=== PATIENT | female | born 2005 | race Caucasian/White ===

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

== ENCOUNTER 2023-05-03 15:12 | Outpatient (REF) | payer OTHER, SELFPAY | END 2023-05-03 15:13 | disposition home or self-care (01) | LOC: HO.SH 15:12 | PROVIDERS: Visit Provider Pediatrics | DX: Z01.118 Encounter for examination of ears and hearing with other abnormal findings (principal); H90.41 Sensorineural hearing loss, unilateral, right ear, with unrestricted hearing on the contralateral side | CPT/HCPCS: 92557; 92567 ==

== ENCOUNTER 2023-08-26 12:24 | Emergency (ER) | payer OTHER, SELFPAY ==
--- NOTE | ~2023-08-26 | CT_ITS ---
EXAMINATION: CT ABDOMEN AND PELVIS WITHOUT CONTRAST CLINICAL INFORMATION: Right flank pain. COMPARISON: CT of the abdomen and pelvis done on 09/16/2022. TECHNIQUE: Multidetector volumetric imaging was performed from the superior aspect of the liver through the pubic symphysis. Sagittal and coronal reformatted images were obtained on the technologist's workstation. This CT examination was performed using dose optimization techniques as appropriate, variously including the following: *Automated exposure control *Adjustment of mA and/or kV according to patient size (this includes techniques or standardized protocols for targeted exams where dose is matched to indication/reason for exam; i.e. extremities or head) *Use of iterative reconstruction technique DLP: 579 mGy-cm FINDINGS: LUNG BASES: The visualized lung bases are unremarkable. LIVER, GALLBLADDER, AND BILIARY TREE: The liver is normal in size, shape, and attenuation. No focal hepatic lesion or biliary ductal dilatation is present. The gallbladder is unremarkable with no evidence of radiopaque gallstones, gallbladder wall thickening, or obvious pericholecystic inflammatory changes. PANCREAS: Unremarkable. SPLEEN: Unremarkable. ADRENAL GLANDS: Unremarkable. KIDNEYS AND URETERS: The left kidney is normal in size, shape, and attenuation. No hydronephrosis, hydroureter, or calculi seen. No perinephric stranding. The right kidney shows moderate hydroureteronephrosis secondary to a 0.4 cm obstructing calculus seen at the right ureterovesicular junction with mean Hounsfield value of 211 (601: 3). There are 2 additional punctate millimeter size nonobstructing right renal calculi seen within the inferior anterior and inferior posterior calyces (269 and 273:3). The right kidney is also asymmetrically enlarged and shows mild perinephric stranding. BLADDER: Unremarkable. GASTROINTESTINAL TRACT: The small and large bowel are unremarkable. The appendix is unremarkable. ABDOMINAL WALL: No significant hernia is appreciated. LYMPH NODES: Normal. VASCULAR: Unremarkable. PELVIC VISCERA: Bilateral adnexal hypodensities are consistent with enlarged follicle-containing otherwise normal-appearing ovaries. The uterus is unremarkable. No evidence of any free fluid and/or free air. OSSEOUS STRUCTURES: Unremarkable. CT/CT abdomen pelvis wo IV con IMPRESSION: 1. Moderate right-sided hydroureteronephrosis is seen secondary to an obstructing 0.4 cm radiopaque calculus at the right ureterovesicular junction. There are 2 additional punctate millimeter size nonobstructing right renal calculi identified as well. No definite left renal or urinary bladder calculi. 2. Otherwise unremarkable study. Fleischner guidelines were followed.
--- NOTE | ~2023-08-26 | US_ITS ---
EXAMINATION: US RETROPERITONEAL LIMITED (RENAL ONLY) CLINICAL INFORMATION: Right costovertebral angle tenderness and right lower quadrant pain.. COMPARISON: CT of the abdomen and pelvis done on 09/16/2022. TECHNIQUE: Real-time imaging of the kidneys. FINDINGS: RIGHT KIDNEY: 10.3 x 5.1 x 5.6 cm (SAG x AP x TRV). The kidney is normal in size, contour, and echogenicity. Renal cortical thickness is normal. No focal parenchymal lesions or hydronephrosis. There are multiple echogenic foci seen within superior middle and inferior calyces measuring in size between 0.5-0.6 cm, consistent with multiple nonobstructing calculi. The proximal to mid part of the right ureter is also dilated suspicious for distal ureteric obstruction. LEFT KIDNEY: 10.2 x 4.0 x 4.8 cm (SAG x AP x TRV). The kidney is normal in size, contour, and echogenicity. Renal cortical thickness is normal. No calculi or focal parenchymal lesions. No hydronephrosis. THE URINARY BLADDER: Empty. US/US renal BI IMPRESSION: 1. Morphologically unremarkable left kidney and decompressed urinary bladder. 2. Multiple subcentimeter right renal calculi varying in size between 0.5 to 0.6 cm and dilated proximal to mid part of the visualized right ureter, suspicious for distal ureteric obstruction.
[2023-08-26 13:30] VITALS: BP 123/88; PULSE 97; RESP 16; TEMP 36.3; O2SAT 100; BMI 29.9
--- NOTE | 2023-08-26 13:30 | ED_ITS ---
HPI - Abdominal Pain General Chief Complaint: Abdominal Pain Stated Complaint: Kidney stones (?) Time Seen by Provider: 08/26/23 15:06 Source: patient, family and old records reviewed Mode of arrival: ambulatory Limitations: no limitations History of Present Illness HPI narrative: 18 yo female with PMH of resolved renal colic in the past. Presents with R sided pain since Sunday here with worsening R sided flank pain now with n/v inability to eat or drink that has worsened since last night. Did not take any medications at home prior to arrival. No prior surgeries. She is on her menses right now. MD elicited complaint: flank pain Pertinent past history: kidney stones Onset (ago): day(s) (4) Pain Consistency: constant Location: R flank Severity: moderate Quality: stabbing and aching Radiation: RLQ Migration to: RLQ Exacerbating factors: nothing Relieving factors: nothing Associated symptoms: nausea and vomiting Related Data Previous Rx's Medication Instructions Recorded naproxen 500 mg tablet (Naprosyn) 500 mg PO BID #20 tabs 09/16/22 ondansetron 4 mg disintegrating 4 mg PO Q8H 4 days #12 tabs 09/16/22 tablet tamsulosin 0.4 mg capsule (Flomax) 0.4 mg PO BEDTIME #20 caps 09/16/22 oxycodone-acetaminophen 5 mg-325 1 tab PO Q6H PRN pain #20 tabs 08/26/23 mg tablet (Percocet) tamsulosin 0.4 mg capsule (Flomax) 0.4 mg PO BEDTIME #10 caps 08/26/23 Allergies Allergy/AdvReac Type Severity Reaction Status Date / Time No Known Allergies Allergy Verified 08/26/23 13:34 Review of Systems Review of Systems Constitutional : No Fever, No Chills ENT/Mouth : No sore throat Eyes: No Eye Pain, No Swelling, No Redness Cardiovascular : No Chest Pain, No SOB Respiratory : No Cough, No Sputum, No Wheezing Gastrointestinal : positive Nausea, positive Vomiting, No Diarrhea, positive abdominal pain Genitourinary : no Dysuria, positive urinary frequency, positive Hematuria, positive Flank Pain, positive hesitancy Musculoskeletal : No joint pain, No Myalgias Skin : No Skin Lesions, No rash Neuro : No Weakness, No Numbness, No Headache Psych : No Anxiety/Panic, No Depression Heme/Lymph: No Bruising, No Lymphadenopathy Endocrine : No Polyuria, No Polydipsia All other systems reviewed and are negative [facility] Past Medical History Attestation statement: The following information was validated with the patient. Medical History Kidney calculus Social History (Updated 08/26/23 @ 15:10 by Lillian Saldana DO) Patient Tobacco Use Status: Never used Tobacco Advance Directives: No Advance Directives Information Provided: No Physical Exam ED Vital Signs: Vital Signs - 24 hr 08/26/23 13:30 08/26/23 16:50 08/26/23 17:43 Temperature 97.4 F Pulse Rate 97 72 81 Respiratory Rate 16 14 14 Blood Pressure 123/88 99/64 116/76 Pulse Oximetry 100 100 100 Oxygen Delivery Method Room Air Room Air Room Air BMI result Body Mass Index 29.9 Appearance: Alert. Oriented X3. No acute distress. Eyes: Pupils equal, round and reactive to light. ENT: Pharynx normal. Neck: Normal inspection. Neck supple. CVS: Normal heart rate and rhythm. Pulses normal. Respiratory: No respiratory distress. Breath sounds normal. Abdomen: Soft and nontender. mild R CVA ttp Skin: Skin warm and dry. Normal skin color. Normal skin turgor. Extremities: No lower extremity edema. No calf ttp Neuro: Oriented X 3. No motor deficit. No sensory deficit. Course Course Course Narrative: RME: 18yo F w/PMHx renal stones c/o R flank pain radiating to RLQ x5 days with assoc N/V. denies urinary sx Patient puking in waiting room bathroom Labs, UA, Renal US ordered Full HPI, ROS and PE to be performed by primary ED provider. Reevaluation(s) Reevaluation #1: US showing dilation but no obstructive uropathy will need CT scan for further imaging and evaluation Reevaluation #2: signed out to Dr. Cox pending CT scan and UA Medical Decision Making Medical Decision Making MDM Narrative: 18 yo female with PMH of renal colic now here with worsening R flank pain with associated n/v that has progressed since Sunday hx of same in past but has been able to pass stones on her own. At this time basic labs, IVF, toradol/zofran and CT scan to assess for renal colic. 1845 patient feels much better now CT scan showed 0.4 cm radiopaque calculus in right UV junction with moderate hydro. Patient received morphine and feeling much better Differential Diagnosis Differential Diagnoses: The differential diagnosis associated with the presentation includes renal colic, ureterolithiasis Admission/Observation Consideration of admission/observation: Escalation of care including admission/observation considered Lab Data MDM Lab Attestation statement: I reviewed the patient's lab results. 08/26/23 14:41 08/26/23 14:41 Labs: Lab Results 08/26/23 08/26/23 08/26/23 Range/Units 14:41 15:26 17:05 WBC 12.8 H (4.8-10.8) X10*3/uL RBC 4.67 (4.20-5.50) X10*6/uL Hgb 11.3 L (12.0-16.0) g/dl Hct 35.6 L (37.0-47.0) % MCV 76.2 L (80.0-98.0) fL MCH 24.2 L (27.0-33.0) pg MCHC 31.7 (31.0-35.0) g/dl RDW 15.9 (11.0-16.0) % Plt Count 401 H (160-400) X10*3/uL MPV 8.6 L (9.4-12.3) fL Immature Gran % (Auto) 0.4 (0.0-0.4) % Neut % (Auto) 85.5 H (45-73) % Lymph % (Auto) 8.8 L (20-40) % [place] % (Auto) 5.0 (2-11) % Eos % (Auto) 0.0 (0-4) % Baso % (Auto) 0.3 (0-2) % Lymph # (Auto) 1.1 L (1.2-4.9) X10*3/uL [place] # (Auto) 0.6 (0.1-1.2) X10*3/uL Eos # (Auto) 0.0 (0.0-0.4) X10*3/uL Baso # (Auto) 0.0 (0.0-0.2) X10*3/uL Abs Immat Gran (auto) 0.05 H (0.00-0.03) X10*3/uL Absolute Neuts (auto) 10.9 H (2.0-8.3) x10*3/uL Absolute Nucleated RBC 0.000 (0.0-0.012) X10*3/uL Nucleated RBC % (auto) 0.0 (0.0-0.2) /100WBC Sodium 140 (135-145) mmol/L Potassium 3.7 (3.3-5.1) mmol/L Chloride 109 H (96-108) mmol/L Carbon Dioxide 20 L (22-29) mmol/L Anion Gap 15 (12-20) BUN 12 (9-16) mg/dL Creatinine 1.06 (0.5-1.4) mg/dL Estim Creat Clear Calc 73.6 Estimated GFR > 60 Random Glucose 99 (60-115) mg/dL Lactic Acid 1.8 (0.5-2.0) mmol/L Calcium 9.5 (8.4-10.2) mg/dL Total Bilirubin 1.4 H (0.0-1.0) mg/dL Direct Bilirubin 0.4 (0.0-0.5) mg/dL AST 19 (5-31) U/L ALT 15 (0-31) U/L Alkaline Phosphatase 54 (39-117) U/L Total Protein 7.7 (6.5-8.0) g/dL Albumin 4.5 (3.5-5.0) g/dL Lipase 14 (8-78) U/L Urine Color Straw Urine Appearance Hazy Urine pH 6.5 (5.0-9.0) Ur Specific [place] 1.015 (1.005-1.025) Urine Protein 30 (1+) H (Neg-Trace) mg/dL Urine Glucose (UA) Negative (Negative) mg/dL Urine Ketones 80 (Negative) mg/dL Urine Blood Large (3+) H (Negative) Urine Nitrite Negative (Negative) Ur Leukocyte Esterase Small (1+) H (Negative) Urine RBC >20 H (0-2) /HPF Urine WBC 6-10 H (0-5) /HPF Ur Squamous Epith Cells 0-2 (0-2) /HPF Urine Bacteria None Seen (None Seen) Hyaline Casts 0-2 (0-2) /LPF Urine Test NEGATIVE (NEGATIVE) Independent Interpretation I performed an independent interpretation of an: Ultrasound (renal stones) and CT Scan Radiology Impression Discussion of test interpretation with radiology: I have reviewed the radiologist's reading. Radiologist Impression: . Moderate right-sided hydroureteronephrosis is seen secondary to an obstructing 0.4 cm radiopaque calculus at the right ureterovesicular junction. There are 2 additional punctate millimeter size nonobstructing right renal calculi identified as well. No definite left renal or urinary bladder calculi. 2. Otherwise unremarkable study. Fleischner guidelines were followed. Independent Historian Clinical information obtained from an independent historian. History obtained from or confirmed by: Parent External Record Review External record reviewed: Inpatient record Medications Administered Discontinued Medications Generic Name Dose Route Start Last Admin Trade Name Freq PRN Reason Stop Dose Admin Sodium Chloride 1,000 mls @ 999 mls/hr 08/26/23 15:15 08/26/23 17:05 Ns IV 08/26/23 16:15 Infused .Q1H1M ROEL Infusion Sodium Chloride 1,000 mls @ 999 mls/hr 08/26/23 15:15 08/26/23 18:24 Ns IV 08/26/23 16:15 Infused .Q1H1M ROEL Infusion Ketorolac Tromethamine 15 mg 08/26/23 15:15 08/26/23 15:44 Ketorolac Tromethamine 15 Mg/Ml Vial IVPUSH 08/26/23 15:16 15 mg ONCE ONE Administration Morphine Sulfate 4 mg 08/26/23 17:49 08/26/23 18:13 Morphine Sulfate 4 Mg/Ml Cartridge IVPUSH 08/26/23 17:50 4 mg ONCE ONE Administration Protocol Ondansetron HCl 4 mg 08/26/23 15:15 08/26/23 15:44 Ondansetron Hcl 4 Mg/2 Ml Vial IVPUSH 08/26/23 15:16 4 mg ONCE ONE Administration Ondansetron HCl 4 mg 08/26/23 18:18 08/26/23 18:22 Ondansetron Hcl 4 Mg/2 Ml Vial IVPUSH 08/26/23 18:19 4 mg ONCE ONE Administration Tamsulosin HCl 0.4 mg 08/26/23 17:49 08/26/23 18:22 Tamsulosin Hcl 0.4 Mg Capsule PO 08/26/23 17:50 0.4 mg ONCE ONE Administration Discharge Plan Discharge Clinical Impression: Renal colic Patient Disposition: Home, Self-Care Instructions: Renal Colic (ED) Additional Instructions: Drink plenty of fluids Take pain medication as prescribed as needed Flomax daily in the night passed the stone or no pain Follow-up with urologist Prescriptions: New tamsulosin [Flomax] 0.4 mg capsule 0.4 mg PO BEDTIME Qty: 10 0RF oxycodone-acetaminophen [Percocet] 5-325 mg tablet 1 tab PO Q6H PRN (Reason: pain) Qty: 20 0RF Rx Instructions: Partial Fill upon patient request. No Action ondansetron 4 mg tablet,disintegrating 4 mg PO Q8H 4 Days Qty: 12 0RF naproxen [Naprosyn] 500 mg tablet 500 mg PO BID Qty: 20 0RF tamsulosin [Flomax] 0.4 mg capsule 0.4 mg PO BEDTIME Qty: 20 0RF Referrals: Erwin Lockhart MD [Physician] - 2 days
[2023-08-26 14:45] LABS: MANUAL DIFF FLAG NO
[2023-08-26 14:46] LABS: Basophils Percent Auto 0.3 % (0-2); Hematocrit 35.6 % (37.0-47.0); Hemoglobin 11.3 g/dl (12.0-16.0); Imm Gran Abs Auto 0.05 X10*3/uL (0.00-0.03); Imm Gran Pct Auto 0.4 % (0.0-0.4); Lymphocytes Absolute Auto 1.1 X10*3/uL (1.2-4.9); Lymphocytes Percent Auto 8.8 % (20-40); Mean Corpuscular HGB Conc 31.7 g/dl (31.0-35.0); Mean Corpuscular Hemoglobin 24.2 pg (27.0-33.0); Mean Corpuscular Volume 76.2 fL (80.0-98.0); Mean Platelet Volume 8.6 fL (9.4-12.3); Monocytes Absolute Auto 0.6 X10*3/uL (0.1-1.2); Neutrophils Absolute Auto 10.9 x10*3/uL (2.0-8.3); Neutrophils Percent Auto 85.5 % (45-73); Platelet Count 401 X10*3/uL (160-400); Red Blood Count 4.67 X10*6/uL (4.20-5.50); Red Cell Distribution Width 15.9 % (11.0-16.0); White Blood Count 12.8 X10*3/uL (4.8-10.8)
[2023-08-26 15:10] LABS: Alanine Aminotransferase 15 U/L (0-31); Albumin Level 4.5 g/dL (3.5-5.0); Alkaline Phosphatase 54 U/L (39-117); Anion Gap 15 (12-20); Aspartate Amino Transferase 19 U/L (5-31); Bilirubin Direct 0.4 mg/dL (0.0-0.5); Bilirubin Total 1.4 mg/dL (0.0-1.0); Blood Urea Nitrogen 12 mg/dL (9-16); Calcium 9.5 mg/dL (8.4-10.2); Carbon Dioxide 20 mmol/L (22-29); Chloride 109 mmol/L (96-108); Creatinine Clr Calc Pharmacy 73.6; Estimated Glomerular Filt Rate > 60; Glucose Random 99 mg/dL (60-115); Lipase 14 U/L (8-78); Potassium 3.7 mmol/L (3.3-5.1); Sodium 140 mmol/L (135-145); Total Protein 7.7 g/dL (6.5-8.0)
[2023-08-26] MEDS: Ketorolac Tromethamine 15 MG/ML VIAL IVPUSH (15:44)
[2023-08-26] MEDS: ondansetron HCL 4 MG/2 ML VIAL IVPUSH ×2 (15:44→18:22)
[2023-08-26] MEDS: 0.9 % Sodium Chloride 1,000 ML 999 ML IV ×2 (15:44→17:03)
[2023-08-26 15:48] LABS: Lactic Acid 1.8 mmol/L (0.5-2.0)
[2023-08-26 16:50] VITALS: BP 99/64; PULSE 72; RESP 14; O2SAT 100
[2023-08-26 17:17] LABS: UPreg QC Valid YES; Urine Pregnancy NEGATIVE (NEGATIVE)
[2023-08-26 17:19] LABS: Appearance Urine Hazy; Color Urine Straw; Glucose Urine UA Negative (Negative); Leukocyte Esterase Urine Small (1+) (Negative); Nitrite Urine Negative (Negative); PH 6.5 (5.0-9.0); Specific Gravity - Urine 1.015 (1.005-1.025); UMIC TRIGGER UACC YES; Urine Blood Large (3+) (Negative); Urine Ketones 80 mg/dL (Negative); Urine Protein 30 (1+) mg/dL (Neg-Trace)
[2023-08-26 17:20] LABS: Bacteria Urine None Seen (None Seen); Hyaline Casts Urine 0-2 /LPF (0-2); RBC Urine >20 /HPF (0-2); Squamous Epithelial Cell Urine 0-2 /HPF (0-2); UACC Culture Trigger YES
[2023-08-26 17:43] VITALS: BP 116/76; PULSE 81; RESP 14; O2SAT 100
[2023-08-26] MEDS: Morphine Sulfate 4 MG/ML CARTRIDGE IVPUSH (18:13)
[2023-08-26] MEDS: Tamsulosin HCL 0.4 MG CAPSULE PO (18:22)
--- NOTE | 2023-08-26 18:29 | PC.NURSE ---
patient remains alert and oriented, resting quietly in room. medicated per the MAR, awaiting results of CT scan. ambulates independently with strong steady gait. call vicente within reach, family in room.
== END 2023-08-26 19:02 | disposition home or self-care (01) ==
PROVIDERS: Emergency Medicine; Physician Assistant; Emergency Provider Internal Medicine; PCP Pediatrics
DX: N23 Unspecified renal colic (principal); R11.2 Nausea with vomiting, unspecified; Z79.899 Other long term (current) drug therapy
CPT/HCPCS: 36415; 74176; 76775; 80048; 80076; 81001; 81025; 83605; 83690; 85025; 87040; 87086; 96361; 96374; 96375; 96376; 99284; 99285; J1885; J2270; J2405

== ENCOUNTER 2025-09-07 11:15 | Outpatient (REF) | payer OTHER, SELFPAY ==
[2025-09-07 15:57] LABS: Resp Syncy Virus RNA Qual PCR NEGATIVE (Negative); SARS COV2 PCR INHOUSE NEGATIVE (Negative)
--- OUTSIDE RECORDS SUMMARY | 2025-09-07 23:06 | XMS_ITS | Clinical Summary ---
Author Organization [facility] Address [address] [place] [phone] Phone Care Team Providers Care Interstate Planner Name Role Phone Unavailable Primary Care Provider Unavailabl e Allergies Active Allergy Reactions Criticality Noted Date Comments Environmental 07/12/2018 seasonal Medications Cetirizine HCl (ZYRTEC ALLERGY PO) Take by mouth. Active Active Problems Problem Noted Date Diagnosed Date Sensorineural hearing loss ( SNHL) of right ear with unrestricted hearing of left ear 05/04/2023 Overview (05/04/2023): Severe, sudden onset in March 2022. Followed by ENT and audiology. Need for case management follow-up 11/03/2020 Overview (11/03/2020): Needs teen urine screen. Acne vulgaris 11/03/2020 Assessment & Plan (11/03/2020 8:48 PM EST): Has been using OTC remedies and interested in prescription acne medication today. Discussed skin care, how to start the medications and increase gradually to avoid overdrying and irritation. Call if not achieving sufficient improvement in 3 months. Encounters Date Type Department Care Team Description 08/26/2025 Telephone [facility] [place] [address] [place] [address] Mikaela Lopez MD Medical Records from Last 3 Months Immunizations Immunization Administration Dates Next Due DTaP 07/03/2008, 4,2003,07/13,2003 DTaP / HiB / IPV 06/02/2004, 3,2003,05/15 H1N1 Inj 07/26/2009 H1N1 Inj Preservative Free 07/26/2009 Hep B, ped/adol 01/15/2004,2003,2003 HiB 06/02/2004, 3,2003,05/15 IPV 07/03/2008, 4,2003,05/15 Influenza, injectable, trivalent 08/22/2020,1011/2007 Influenza, injectable,darian valent, preservative free, pediatric 07/03/2008 MMR 07/03/2008,06/02/2004 MMRV 07/03/2008 Meningococcal Conj (Menactra) MCV4P 07/21/2019,0 04/14/2014 Pneumococcal Conjugate 05/08/2006,2002,2003,05/15 Tdap 04/14/2014 Varicella 07/03/2008,03/03/2004 Family History Relation Name Status Comments Brother Alive Father Alive Maternal Grandfather Alive Maternal Grandmother Alive Mother Alive Paternal Grandfather Alive Paternal Grandmother Alive Sister Alive Social History Tobacco Use Types Packs/Day Years Used Date Smoking Tobacco: Never Assessed Hunger/Food Answer Date Recorded In the last 12 months, did y ou or your family ever eat less than you felt you should because there wasn't enough money for food? No 10/29/2020 Stable Housing Answer Date Recorded Are you worried that in the next 2 months you may not have stable housing? No 10/29/2020 Transportation Concerns Answer Date Rec orded In the last 12 months, have you or your family ever had to go without healthcare because you didn't have a way to get there? No 10/29/2020 Hazards in Home Answer Date Recorded Think about the place you li ve. Do you have problems with any of the following? Pests (mice or roaches), mold, no/not working smoke detectors, water leaks, no window guards. No 2020 Financing Utilities Answer Date Recorde d In the last 12 months, has t he electric, gas, oil, or water company threatened to shut off your services in your home? No 10/29/2020 Safety at Home Answer Date Recorded Are you or your family worried about feeling saf e in your home? No 10/29/2020 Outside Support Answer Date Recorded Do you feel that you need mo re support from other people or programs to help you care for yourself or your family? No 10/29/2020 Understanding Health Concerns Answer Da te Recorded Do you need help understandi ng your or your child's healthcare needs (diagnosis, medications, plan, etc.)? No 10/29/2020 Financing Health Concerns Answer Date R ecorded In the last 12 months, was t here a time when your child needed to see a doctor or get medications or supplies but could not because of cost? No 10/29/2020 Missing School or Work Answer Date Mendez rded Did you or your child miss s chool or work because of a health problem that could have been avoided? No 10/29/2020 Comments No Sex and Gender Information Value Date Recorded Sex Assigned at Not on file Legal Sex Female 8:49 AM EST Gender Identity Not on file Sexual Orientation Not on file Last Filed Vital Signs Vital Sign Reading Time Taken Comments Blood Pressure 112/70 10/29/2020 9:47 AM EST Pulse 75 10/29/2020 9:47 AM EST Temperature 36.6 C (97.8 F) 06/26/2023 11:19 AM EDT Respiratory Rate - - Oxygen Saturation - - Inhaled Oxygen Concentration - - Weight 68.9 kg (152 lb) 06/26/2023 11:19 AM EDT Height 154.3 cm (5' 0.75 ) 10/29/2020 9:47 AM ES T Body Mass Index - - Plan of Treatment Health Maintenance Due Date Last Done Comments HPV Vaccines (1 - 3-dose series) 2018 Men B Vaccine (1 of 2 - Standard) 2019 DTaP,Tdap,and Td Vaccines (7 - Td or Tdap) 04/14/2024 04/14/2014, 07/03/2008, 06/02/2004, Additional history exists Influenza Vaccines (#1) 2025 08/22/20 20, 07/03/2008, 07/03/2008 COVID-19 Vaccine ( season) 2025 02/16/2021, 01/26/2021 Hepatitis B Vaccines Completed 01/15/2004, 2003, 2003 HIB Vaccines Completed 06/02/2004, 11/2003, 2003, Additional history exists Pneumococcal Vaccine Completed 05/08/2006, 2003, 2003, Additional history exists IPV Vaccines Completed 07/03/2008, 11/2003, 01/15/2004, Additional history exists MMR Vaccines Completed 07/03/2008, 11/2007, 06/02/2004 Varicella Vaccines Completed 07/03/2008, , 03/03/2004 Meningococcal Vaccine Completed 07/21/2019, 014 Hepatitis A Vaccines Aged Out No long er eligible based on patient's age to complete this topic
--- OUTSIDE RECORDS SUMMARY | 2025-09-07 23:06 | XMS_ITS | Clinical Summary ---
Author Organization [facility] 's Address [address] [place] [address] Care Team Providers Care [employer] Name Role Phone Scarlet Houston MD Primary Care Provider [phone] Source Comments Please note that some or all of the patient's information could have additional privacy protections. State laws allow health care providers to render certain types of treatment to minors without parental consent. Please do not assume that this information can be shared solely by obtaining just the consent of the patient's parent/guardian. Please determine if all or part of the patient's care was rendered without parent/guardian involvement. And, if so, obtain the minor's consent prior to disclosure.[facility]'s Allergies No known active allergies Medications No known medications Active Problems Problem Noted Date Diagnosed Date Abnormal auditory perception of right ear 2021 Family History Medical History Relation Name Comments Anesthesia problems Neg Hx Bleeding disorder Neg Hx Social History Tobacco Use Types Packs/Day Years Used Date Smoking Tobacco: Never Other Needs Answer Date Recorded Anything else about your child you'd like help w ith? Not on file 06/15/2023 Share good news about positive changes: Not on f ile 06/15/2023 Comments Unknown Sex and Gender Information Value Date Recorded Sex Assigned at Not on file Legal Sex Female 11:27 AM EDT Gender Identity Not on file Sexual Orientation Not on file Last Filed Vital Signs Vital Sign Reading Time Taken Comments Blood Pressure - - Pulse - - Temperature - - Respiratory Rate - - Oxygen Saturation - - Inhaled Oxygen Concentration - - Weight 67.1 kg (148 lb) 04/24/2022 2:59 PM EDT Height - - Body Mass Index - - Plan of Treatment Health Maintenance Due Date Last Done Comments DTaP/TDAP/TD VACCINES (1 - Tdap) 2010 ADOLESCENT HIV SCREENING 2016 COVID-19 Vaccine (2023-2 5 season) 2025 INFLUENZA (#1) 2025 NIRSEVIMAB VACCINES UNDER 8 MONTHS Aged Out No longer eligible based on patient's age to complete this topic Insurance [facility] HMO Care Teams Tank [employer] Relationship Specialty Start Date End Date Scarlet Houston MD [address] [place] [address] [place] [id number] PCP - General General Pediatrics 04/20/22
--- OUTSIDE RECORDS SUMMARY | 2025-09-07 23:06 | XMS_ITS ---
Author Name [facility] Organization Unknown History of Medication Use Medication Directions Dispensed Refills Start Date End Date Stat No known medications No known medications active Problems Problem Status Onset Date Problem Type Date of Resolution Source Abnormal auditory perception of right ear active 2022-04-24 ProblemAct [facility] Sensorineural hearing loss (SNHL) of right ear with unrestricted hearing of left ear active EncounterDiagnosisAct [facility] Encounters Encounter Type Encounter Reason Primary Diagnosis Location Date Ambulatory [facility] 06/19/2022 Ambulatory [facility] 05/24/2022 Ambulatory [facility] 05/24/2022 Ambulatory [facility] 05/16/2022 Ambulatory [facility] 04/27/2022 Ambulatory [facility] 04/27/2022 Ambulatory [facility] 04/27/2022 Ambulatory [facility] 04/27/2022 Ambulatory [facility] 04/25/2022 Ambulatory [facility] 04/25/2022 Ambulatory [facility] 04/25/2022 Ambulatory [facility] 04/24/2022 Care Team Organization Name Specialty Phone Email Start Date End [facility] DAYNA UNGER Primary Care 06/20/2022
== END 2025-09-07 11:16 | disposition home or self-care (01) ==
LOC: HO.LNP 11:15
PROVIDERS: PCP Pediatrics; Visit Provider Physician Assistant Medical
DX: J02.9 Acute pharyngitis, unspecified (principal); R09.89 Other specified symptoms and signs involving the circulatory and respiratory systems; R09.81 Nasal congestion; R51.9 Headache, unspecified; R05.9 Cough, unspecified
CPT/HCPCS: 87637; 87880

== ENCOUNTER 2025-09-07 11:15 | Outpatient (AMB) | payer OTHER, SELFPAY ==
[2025-09-07 11:34] VITALS: BP 108/80; PULSE 70; TEMP 36.7; O2SAT 100; BMI 27.9
--- NOTE | 2025-09-07 11:34 | AM.OFFWIN_ITS ---
Intake Vital Signs 09/07/25 11:34 Height 5 ft Weight 143 lb BMI 27.9 BP 108/80 Blood Pressure Location Rt brachial Position Sitting Pulse 70 Pulse Source Pulse Oximeter Temp 98.1 F Temp Source Oral Pulse Oximetry (%) 100 Oxygen Delivery Method Room Air Intake Visit Reasons: EP-sore throat, cough, body ache Intake Note: Patient presents c/o neck hurts, swollen tonsils, cough, nasal congestion, headaches, body aches x3 days. Patient Tobacco Use Status: Never used Tobacco Allergies No Known Allergies Allergy (Verified 09/07/25 11:38) Do you need a note to return to daycare/school/sports/work: Yes HPI HPI Comments History of Present Illness Details History - The patient is a 20 year old female pr esenting with swollen tonsils and a sore throat. - Symptoms started on Sunday. - She experiences neck pain rather than a sore throat. - Associated symptoms include a cough an d occasional headaches, but she denies fever or chills. - The cough is dry, non-productive, and she feels as if she cannot expectorate mucus due to the tonsillar enlargement. - She has a history of frequent streptoc occal pharyngitis as a child, though she has not had it in a long time. - She denies chest pain, SOB, abd pain, n/v/d, ANDERSON, dizziness, or ear pain. Physical Exam General: Cooperative, healthy appearing, comfortable and no acute distress Orientation/consciousness: Patient oriented x3 Limitations: No limitations Head: Normal to inspection Ears: Hearing grossly normal bilaterally, external ears normal and TM's normal bilaterally Nose: Normal external nose present, normal nares present, and no nasal discharge present. Face and sinus: Sinuses nontender to palpation. Mouth: Normal oral and palatal mucosa present and moist mucous membranes noted. Throat: Tonsils are super swollen and appear gnarly. Uvula is midline. Posterior oropharynx with erythema and exudates. Eyes: Appearance normal, both eyes and all related structures Neck: Normal visual inspection, full ROM. No lymphadenopathy noted. Patient reports neck pain. Respiratory: Clear to auscultation bilaterally. Normal respiratory effort, able to speak in complete sentences. No respiratory distress, not tachypneic, no tripod positioning and no use of accessory muscles. Cardiovascular: Regular rate and rhythm. Normal S1 and S2 Skin: No rashes or lesions noted Patient was informed and verbally consented to the use of an ambient scribe for clinic note documentation during this visit [facility] Medical History Kidney calculus Social History (Updated 08/26/23 @ 15:10 by Lillian Saldana DO) Patient Tobacco Use Status: Never used Tobacco Review of Systems Const All systems reviewed & are unremarkable except as noted in HPI and below Physical Exam Vital Signs: Last Vital Signs Temp 98.1 F 09/07/25 11:34 Pulse 70 09/07/25 11:34 BP 108/80 09/07/25 11:34 Pulse Ox 100 09/07/25 11:34 Oxygen Delivery Method Room Air 09/07/25 11:34 BMI result Body Mass Index 27.9 Results AMB Rapid Strep AMB Rapid Strep Negative Last Edit by Emily Clarke CMA on 09/07/25 12:1 5 Results Reviewed Results Reviewed: Laboratory Last Values Strep Scn Rapid Clinic Negative 09/07/25 12:14 Assessment & Plan Assessment & Plan (1) Sore throat: Code(s): J02.9 - Acute pharyngitis, unspecified Plan Most likely Acute Tonsillitis vs strep vs URI vs covid vs flu vs RSV rapid was negative plan - A throat swab was obtained to investigate the etiology of strep, considering the patient's history of streptococcal pharyngitis as a child. - salt water gargles - tylenol or motrin as needed - start Amoxicillin BID for 10 days - diet as tolerated - drink lots of fluids - follow up with PCP Orders: Orders AMB Rapid Strep Screen Today Z13.9 - Encounter for screening, unspecified Medications: New amoxicillin 500 mg PO Q12H 20 tabs 0RF Discontinued naproxen (Naprosyn) Discontinued Reason: Patient Completed Course 500 mg PO BID 20 tabs 0RF ondansetron Discontinued Reason: Patient no longer taking 4 mg PO Q8H 4 days 12 tabs 0RF tamsulosin (Flomax) Discontinued Reason: Patient no longer taking 0.4 mg PO BEDTIME 20 caps 0RF tamsulosin (Flomax) Discontinued Reason: Patient no longer taking 0.4 mg PO BEDTIME 10 caps 0RF oxycodone-acetaminophen 5-325 mg (Percocet) Partial Fill upon patient request. Discontinued Reason: Patient no longer taking 1 tab PO Q6H PRN 20 tabs 0RF pain Coding Level of Care Code Est Pt Level 3 (22036) Diagnoses Sore throat J02.9
== END 2025-09-07 12:19 | disposition home or self-care (01) ==
PROVIDERS: PCP Pediatrics; Visit Provider Physician Assistant Medical
DX: J02.9 Acute pharyngitis, unspecified (principal); Z13.9 Encounter for screening, unspecified